=== PATIENT | male | born 1950 | race Caucasian/White ===

== ENCOUNTER 2018-12-31 07:59 | Day surgery (SDC) | payer OTHER ==
[~2018-12-31 07:59] MED LIST: Midazolam 1 MG/ML 2 ML SDV ONE; Propofol 200 MG/20 ML SDV ONE; fentaNYL 100 MCG/2 ML SDV ONE
[2018-12-31] MEDS ORDERED: Sodium Chloride 0.9% 1,000 ML IV SCH (08:30)
--- NOTE | 2019-01-01 10:34 | OR ---
DATE OF PROCEDURE: 12/31/2018 SURGEON: Milan Tate MD PROCEDURE: Colonoscopy. FINDINGS: Normal colonoscopy. PREOPERATIVE DIAGNOSIS: Screening colonoscopy. POSTOPERATIVE DIAGNOSIS: Screening colonoscopy. RISKS: Risks, benefits, alternatives, and limitations including, but not limited to infection, bleeding, and perforation were explained to the patient, who wished to proceed. PROCEDURE IN DETAIL: The patient was placed in left lateral decubitus position. Digital rectal exam was performed without abnormality. The scope was introduced and advanced atraumatically to the ileocecal valve. The scope was brought back through the ascending, transverse, descending colon, and retroflexed. No evidence of old or new blood. No masses. No polyps. No diverticulosis. Milan Tate MD /[id number]
== END 2018-12-31 10:10 | disposition home or self-care (01) ==
LOC: JP.SDS 07:59
PROVIDERS: ATTEND Surgery
DX: Z12.11 Encounter for screening for malignant neoplasm of colon (principal); I10 Essential (primary) hypertension
CPT/HCPCS: 45378; J2250; J2704; J3010; J7030

== ENCOUNTER 2019-03-24 02:06 | Emergency (ER) | payer OTHER ==
--- NOTE | 2019-03-24 02:37 | EDM.PDOC ---
ED HPI GENERAL MEDICAL PROBLEM - General Chief Complaint: Laceration Stated Complaint: RIGHT INDEX FINGER CUT Time Seen by Provider: 03/24/19 02:31 Source of Information: Reports: Patient History Limitations: Reports: No Limitations - History of Present Illness INITIAL COMMENTS - FREE TEXT/NARRATIVE: pt caught his index finger in a chain and the tip of the finger was pulled off Onset: Today, Sudden Duration: Hour(s): Location: Reports: Upper Extremity, Right Associated Symptoms: Reports: No Other Symptoms Right Upper Finger-Index Pain Score (Numeric/FACES): 3 - Related Data Allergies Allergy/AdvReac Type Severity Reaction Status Date / Time No Known Allergies Allergy Verified 12/31/18 08:14 Home Meds: Home Meds Lisinopril [Prinivil] 40 mg PO DAILY 12/29/18 [History] Metoprolol Succinate [Toprol Xl] 50 mg PO DAILY 12/29/18 [History] Spironolactone [Aldactone] 25 mg PO BID 12/29/18 [History] Past Medical History HEENT History: Reports: Allergic Rhinitis, Impaired Vision Cardiovascular History: Reports: Hypertension Gastrointestinal History: Reports: Colon Polyp Musculoskeletal History: Reports: Arthritis - Infectious Disease History Infectious Disease History: Reports: Chicken Pox, Measles, Mumps - Past Surgical History HEENT Surgical History: Reports: None Cardiovascular Surgical History: Reports: None GI Surgical History: Reports: Colonoscopy Musculoskeletal Surgical History: Reports: Amputation Social & Family History - Family History Family Medical History: Unobtainable - Tobacco Use Smoking Status *Q: Former Smoker Used Tobacco, but Quit: Yes Month/Year Tobacco Last Used: 09/1986 - Caffeine Use Caffeine Use: Reports: None - Recreational Drug Use Recreational Drug Use: No ED ROS GENERAL - Review of Systems Review Of Systems: See Below Constitutional: Reports: No Symptoms HEENT: Reports: No Symptoms Respiratory: Reports: No Symptoms Cardiovascular: Reports: No Symptoms Endocrine: Reports: No Symptoms GI/Abdominal: Reports: No Symptoms : Reports: No Symptoms Musculoskeletal: Reports: Other ( amputation of the tip of the rt index finger. ) Skin: Reports: No Symptoms ED EXAM, SKIN/RASH Exam: See Below Text/Narrative:: pt caught the rt index finger in a chain at [facility] and he amputated the tip of the finger. Exam Limited By: No Limitations General Appearance: Alert, Anxious Ears: Normal TMs Nose: Normal Inspection Throat/Mouth: Normal Inspection Head: Atraumatic Extremities: Other ( rt index finger tip was removed) Course - Vital Signs Last Recorded V/S: Last Vital Signs Temp 36.0 C 03/24/19 02:15 Pulse 70 03/24/19 02:15 Resp 16 03/24/19 02:15 BP 215/92 H 03/24/19 02:15 Pulse Ox 98 03/24/19 02:15 - Orders/Labs/Meds Orders: Active Orders 24 hr Category Date Time Status Acetaminophen/oxyCODONE [Percocet 325-5 MG] Med 03/24/19 02:30 Once 1 tab PO ONETIME ONE ceFAZolin [Ancef] 1 gm Med 03/24/19 02:28 Ordered Sodium Chloride 0.9% [Normal Saline] 50 ml IV ONETIME Medication Orders Cefazolin Sodium 1 gm/ Sodium (Chloride) 50 mls @ 100 mls/hr IV ONETIME ONE Stop: 03/24/19 02:57 Meds: Medications Generic Name Dose Route Start Last Admin Trade Name Freq PRN Reason Stop Dose Admin Cefazolin Sodium 1 gm/ Sodium 50 mls @ 100 mls/hr 03/24/19 02:28 Chloride IV 03/24/19 02:57 ONETIME ONE - Re-Assessments/Exams Free Text/Narrative Re-Assessment/Exam: 03/24/19 02:34 pt was given a Gram of ancef and percocet 5/325 Departure - Departure Time of Disposition: 02:35 Disposition: Home, Self-Care 01 Condition: Fair Clinical Impression: Amputation of finger tip - Discharge Information Referrals: PCP,None [Primary Care Provider] - Care Plan Goals: wet to dry dressing to finger will call in am as to when he is to return. Dr Horton will be arranging for the repair Percocet 5/325 q6h prn for pain. - My Orders Last 24 Hours: My Active Orders 03/24/19 02:28 ceFAZolin [Ancef] 1 gm Sodium Chloride 0.9% [Normal Saline] 50 ml IV ONETIME 03/24/19 02:30 Acetaminophen/oxyCODONE [Percocet 325-5 MG] 1 tab PO ONETIME ONE - Assessment/Plan Last 24 Hours: My Active Orders 03/24/19 02:28 ceFAZolin [Ancef] 1 gm Sodium Chloride 0.9% [Normal Saline] 50 ml IV ONETIME 03/24/19 02:30 Acetaminophen/oxyCODONE [Percocet 325-5 MG] 1 tab PO ONETIME ONE
[2019-03-24] MEDS: Acetaminophen/oxyCODONE 325-5 MG Tab PO ONE (02:39)
[2019-03-24] MEDS: ceFAZolin 1 GM in Sodium Chloride 0.9% 50 ML IV ONE (02:45)
== END 2019-03-24 03:25 | disposition home or self-care (01) ==
LOC: JP.ED 02:06
DX: S68.610A Complete traumatic transphalangeal amputation of right index finger, initial encounter (principal); Z87.891 Personal history of nicotine dependence; I10 Essential (primary) hypertension; Z79.899 Other long term (current) drug therapy; W22.8XXA Striking against or struck by other objects, initial encounter
CPT/HCPCS: 96365; 99282; A9270; J0690; J7050

== ENCOUNTER 2019-03-24 09:44 | Day surgery (SDC) | payer OTHER ==
[~2019-03-24 09:44] MED LIST changes: +Bupivacaine 0.5% 50 ML MDV ONE; -Midazolam 1 MG/ML 2 ML SDV ONE; -Propofol 200 MG/20 ML SDV ONE; -fentaNYL 100 MCG/2 ML SDV ONE
[2019-03-24] MEDS ORDERED: Nozin Nasal Sanitizer NASBOTH ONE (10:30)
[2019-03-24] MEDS ORDERED: Lactated Ringers 1,000 ML IV SCH (11:00)
[2019-03-24] MEDS ORDERED: ceFAZolin 1 GM in Premix Bag 1 BAG IV ONE (11:30)
[2019-03-24] MEDS ORDERED: Midazolam 1 MG/ML 2 ML SDV ONE (11:54)
[2019-03-24] MEDS ORDERED: Propofol 200 MG/20 ML SDV ONE (11:54)
[2019-03-24] MEDS ORDERED: fentaNYL 100 MCG/2 ML SDV ONE (11:54)
[2019-03-24] MEDS ORDERED: Acetaminophen/HYDROcodone 325-5 MG Tab PO PRN (14:39)
--- NOTE | 2019-03-25 10:33 | OR ---
DATE OF PROCEDURE: 03/24/2019 PREOPERATIVE DIAGNOSIS: Traumatic amputation, right index fingertip. POSTOPERATIVE DIAGNOSIS: Traumatic amputation, right index fingertip just distal to the DIP, including nail, nail bed, and attachment of the flexor digitorum profundus. PROCEDURE: Revision of amputation, right index fingertip, with primary closure. SURGEON: Cameron Garay MD ANESTHESIA: Digital block with sedation. INDICATIONS: Mr. Nagel is a [id number], 68-year-old gentleman, who sustained a work-related injury to his left index finger late last night. He was seen in the emergency room in the [place] hours after the injury. He reports catching his fingertip in a moving chain in machinery at work, resulting in loss of the fingertip. Finger was irrigated in the emergency room and a sterile dressing applied. He received IV antibiotics. He now presents for revision of his traumatic amputation and primary closure. Risks, benefits, potential complications of the procedure were discussed. DESCRIPTION OF PROCEDURE: After adequate anesthesia was obtained with a digital block using 0.5% Marcaine without epinephrine and conscious sedation, the right hand was prepped with Betadine, scrubbing the fingertip with Betadine. Hand was then draped in a sterile fashion. Evaluation of the fingertip revealed traumatic amputation with rough edges, which included the fingertip, nail, nail bed, and the majority of the distal phalanx with a very small piece still remaining. This piece did not include the attachment of the flexor digitorum profundus, which appeared to have avulsed from the small remaining fragment. The small fragment that remained was excised sharply, dividing the ligaments and remaining capsule, exposing the distal end of the middle phalanx. Soft tissue was then thoroughly irrigated. The finger was then evaluated for primary closure. Sharp debridement was performed of some of the subcutaneous tissue and remaining pulp with a #15 blade to allow primary closure of the skin. The dorsal flap was then slightly contoured, debriding the rough edge. The distal end of the middle phalanx was contoured slightly with a rongeur to allow closure without tension. Fingertip was then closed using 4-0 nylon in interrupted fashion. The dog ears medially and laterally that resulted from the direct flap closure were excised and closed with 4-0 nylon. This resulted in complete coverage of the distal phalanx without significant tension on the flap or remaining skin. Sterile dressing was then applied. The patient tolerated procedure well. There were no complications. He was taken from the operating room in stable condition. Cameron Garay MD /[id number]
== END 2019-03-24 15:10 | disposition home or self-care (01) ==
LOC: JP.SDS 09:44
PROVIDERS: ATTEND Specialist
DX: S68.610A Complete traumatic transphalangeal amputation of right index finger, initial encounter (principal); I10 Essential (primary) hypertension; W31.89XA Contact with other specified machinery, initial encounter; Y92.89 Other specified places as the place of occurrence of the external cause; Y99.0 Civilian activity done for income or pay
CPT/HCPCS: 26951; 36415; 80053; 85027; 93005; A9270; J0690; J2250; J2704; J3010; J3490; J7120

== ENCOUNTER 2021-08-31 14:14 | Emergency (ER) | payer OTHER ==
[2021-08-31] MEDS ORDERED: HYDROmorphone 1 MG/ML Syringe IM ONE (14:51)
== END 2021-08-31 15:59 | disposition home or self-care (01) ==
LOC: JP.ED 14:14
DX: S22.41XA Multiple fractures of ribs, right side, initial encounter for closed fracture (principal); I10 Essential (primary) hypertension; Z79.82 Long term (current) use of aspirin; Z79.899 Other long term (current) drug therapy; Z72.0 Tobacco use; W00.0XXA Fall on same level due to ice and snow, initial encounter
CPT/HCPCS: 71250; 96372; 99283; J1170